=== PATIENT | male | born 1980 ===

== ENCOUNTER 2018-12-22 22:31 | Emergency (ER) | payer SELFPAY ==
[~2018-12-22] VITALS: Ht 175.3 cm; Wt 72.1 kg
[2018-12-22 22:39] VITALS: BP 118/74; PULSE 75; TEMP 98.7
== END 2018-12-22 23:51 | disposition home or self-care (01) ==
LOC: COL.ER 22:31
DX: M20.032 Swan-neck deformity of left finger(s) (principal); W22.8XXA Striking against or struck by other objects, initial encounter